=== PATIENT | female | born 1985 | race Caucasian/White ===

== ENCOUNTER 2024-09-08 14:45 | Outpatient (CLI) | payer BC | END 2024-09-08 14:46 | disposition home or self-care (01) | LOC: CSHMAMMO 14:45 | DX: Z12.31 Encounter for screening mammogram for malignant neoplasm of breast (principal); N64.89 Other specified disorders of breast; Z80.3 Family history of malignant neoplasm of breast | CPT/HCPCS: 77063; 77067 ==

== ENCOUNTER 2024-09-17 07:55 | Outpatient (CLI) | payer BC | END 2024-09-17 07:56 | disposition home or self-care (01) | LOC: CSHMAMMO 07:55 | PROVIDERS: ATTEND Family Medicine | DX: N64.89 Other specified disorders of breast (principal) | CPT/HCPCS: G0279 ==

== ENCOUNTER 2025-08-03 08:56 | Outpatient (CLI) | payer BC | END 2025-08-03 08:57 | disposition home or self-care (01) | LOC: CSHSLEEP 08:56 → EDSTATUS 14:12 | PROVIDERS: ATTEND Family Medicine | DX: G47.33 Obstructive sleep apnea (adult) (pediatric) (principal); R51.9 Headache, unspecified; F32.A Depression, unspecified; F41.9 Anxiety disorder, unspecified; E66.9 Obesity, unspecified; Z68.37 Body mass index [BMI] 37.0-37.9, adult; R06.83 Snoring | CPT/HCPCS: 95800 ==